=== PATIENT | female | born 1985 | race Two or more races ===

== ENCOUNTER 2018-07-03 23:20 | Emergency (ER) | payer OTHER ==
[~2018-07-03] VITALS: Ht 170.2 cm; Wt 122.5 kg
[2018-07-03] MEDS ORDERED: LANTUS SOL100 UNIT/1 (23:42)
[2018-07-03] MEDS ORDERED: HUMALOG100 UNIT/1 (23:42)
== END 2018-07-04 08:20 | disposition home or self-care (01) ==
LOC: ER 23:20
DX: N93.8 Other specified abnormal uterine and vaginal bleeding (principal)

== ENCOUNTER 2018-08-23 12:08 | Emergency (ER) | payer OTHER ==
[~2018-08-23] VITALS: Ht 170.2 cm; Wt 123.4 kg
[~2018-08-23 12:08] MED LIST: HUMALOG100 UNIT/1; LANTUS SOL100 UNIT/1
[2018-08-23] MEDS ORDERED: SINGULAIR10 MG (13:04)
== END 2018-08-23 20:30 | disposition home or self-care (01) ==
LOC: ER 12:08
DX: K80.20 Calculus of gallbladder without cholecystitis without obstruction (principal)

== ENCOUNTER 2019-07-08 16:00 | Emergency (ER) | payer OTHER ==
[~2019-07-08] VITALS: Ht 162.6 cm; Wt 145.1 kg
[~2019-07-08 16:00] MED LIST changes: +SINGULAIR10 MG
== END 2019-07-08 21:00 | disposition home or self-care (01) ==
LOC: ER 16:00
DX: N93.8 Other specified abnormal uterine and vaginal bleeding (principal); R10.2 Pelvic and perineal pain

== ENCOUNTER 2019-10-15 17:05 | Emergency (ER) | payer OTHER ==
[~2019-10-15] VITALS: Ht 170.2 cm; Wt 123.4 kg
[2019-10-15] MEDS ORDERED: NAPROXEN SODIU275 MG (17:31)
[2019-10-15] MEDS ORDERED: METFORMIN HCL500 MG (17:31)
[2019-10-15] MEDS ORDERED: [UNRECOGNIZED DRUG - OTHER] (17:32)
== END 2019-10-15 22:01 | disposition home or self-care (01) ==
LOC: ER 17:05
DX: N93.8 Other specified abnormal uterine and vaginal bleeding (principal)